=== PATIENT | male | born 1990 | race Caucasian/White ===

== ENCOUNTER 2016-10-05 04:44 | Emergency (ER) | payer OTHER ==
[~2016-10-05] VITALS: Ht 180.3 cm; Wt 61.4 kg
[2016-10-05] MEDS ORDERED: ONDANSETRON 4 MG ORAL DISINTEGRATING TAB (S0181) PO ONE (07:30)
[2016-10-05] MEDS ORDERED: LIDOCAINE W/EPINEPHRINE 1% 20ML VIAL SC ONE (07:30)
[2016-10-05 09:07] VITALS: BP 122/68
--- NOTE | 2016-10-06 15:02 | REP ---
Maxillofacial CT study without contrast: History: Head injury question left orbital fracture. CT findings: Orbital margins are intact bilaterally. There is a zone of right frontal scalp swelling as seen on the CT of the brain. There is a mucous retention cyst in the left maxillary sinus. Otherwise, the paranasal sinuses are clear. No nasal fracture is seen. Inferior maxillary spine is intact. No facial fracture is seen. Impression: No facial fracture noted. Signed by Florian Hernandez MD 10/06/2016 03:09 P
--- NOTE | 2016-10-06 15:08 | REP ---
HEAD CT WITHOUT CONTRAST: HISTORY: Injury. Nausea and vomiting. COMPARISON STUDY: No comparison study. CT FINDINGS: Bone window settings demonstrate an intact bony calvarium. There is no evidence of skull fracture or incidental bony calvarial lesion. There is a right frontal scalp swelling. There is a small mucous retention cyst in the left sphenoid sinus. The visualized paranasal sinuses appear otherwise clear. No intraorbital abnormality is seen. On soft tissue window setting images; the lateral, third, and fourth ventricles are normal in size and position. Turcios-white differentiation pattern is normal above and below the tentorium. There are is no evidence of intracranial hemorrhage. No mass, edema, infarction, or midline shift is seen. No extra-axial fluid collection is appreciated. IMPRESSION: Right frontal scalp swelling. No skull fracture or intracranial injury. Mucous retention cyst in the left sphenoid sinus, otherwise negative noncontrast head CT. Signed by Florian Hernandez MD 10/06/2016 03:09 P
== END 2016-10-05 09:09 | disposition home or self-care (01) ==
LOC: M ED 04:44
DX: S01.112A Laceration without foreign body of left eyelid and periocular area, initial encounter (principal); S00.83XA Contusion of other part of head, initial encounter; Y04.8XXA Assault by other bodily force, initial encounter; Y92.009 Unspecified place in unspecified non-institutional (private) residence as the place of occurrence of the external cause; Y93.9 Activity, unspecified; Y99.9 Unspecified external cause status; F43.10 Post-traumatic stress disorder, unspecified